=== PATIENT | female | born 1950 | race Caucasian/White ===

== ENCOUNTER 2019-03-11 06:10 | Day surgery (SDC) | payer MEDICARE ==
[~2019-03-11 06:10] MED LIST: Lactated Ringers 1,000 ML IV SCH; Lidocaine 1%/Sod Bicarbonate in NS 8.4% 1 ML Syringe IDERM PRN; Sodium Chloride 0.9% 10 ML Syringe FLUSH PRN
[2019-03-11] MEDS ORDERED: Propofol 200 MG/20 ML SDV ONE (06:54)
[2019-03-11] MEDS ORDERED: Midazolam 1 MG/ML 2 ML SDV ONE (06:55)
[2019-03-11] MEDS ORDERED: fentaNYL 100 MCG/2 ML SDV ONE (06:55)
[2019-03-11] MEDS ORDERED: Ondansetron 4 MG/2 ML SDV ONE (06:55)
[2019-03-11] MEDS ORDERED: Lidocaine 1% 4 ML ONE (06:55)
[2019-03-11] MEDS ORDERED: Bupivacaine 0.25% 10 ML SDV ONE ×2 (07:11→07:27)
[2019-03-11] MEDS ORDERED: Lidocaine 1% 30 ML SDV ONE (07:11)
--- NOTE | 2019-03-11 07:14 | PCM.PREANE ---
Preanesthetic Assessment - Anesthesia/Transfusion/Family Hx Anesthesia History: Prior Anesthesia Without Reaction Family History of Anesthesia Reaction: No Transfusion History: No Prior Transfusion(s) - Review of Systems General: No Symptoms Pulmonary: No Symptoms Cardiovascular: No Symptoms Gastrointestinal: No Symptoms Neurological: No Symptoms Other: Reports: None - Physical Assessment NPO Status Date: 03/10/19 NPO Status Time: 21:00 Vital Signs: Last Vital Signs Temp 36.2 C 03/11/19 06:15 Pulse 66 03/11/19 06:15 Resp 16 03/11/19 06:15 BP 152/87 H 03/11/19 06:15 Pulse Ox 96 03/11/19 06:15 Height: 1.57 m Weight: 79.379 kg ASA Class: 2 Mental Status: Alert & Oriented x3 Airway Class: Mallampati = 2 Dentition: Reports: Normal Dentition Thyro-Mental Finger Breadths: 3 Mouth Opening Finger Breadths: 2 ROM/Head Extension: Full Lungs: Clear to Auscultation, Normal Respiratory Effort Cardiovascular: Regular Rate, Regular Rhythm - Lab Values: Laboratory Last Values MRSA (PCR) Negative 03/05/19 13:55 - Allergies Allergies/Adverse Reactions: Allergies Allergy/AdvReac Type Severity Reaction Status Date / Time codeine Allergy Cannot Verified 03/10/19 12:54 Remember diclofenac [From Voltaren] Allergy Cannot Verified 03/10/19 12:54 Remember ezetimibe [From Zetia] Allergy Cannot Verified 03/10/19 12:54 Remember Iodinated Contrast Media Allergy Cannot Verified 03/10/19 12:54 Remember ketorolac [From Toradol] Allergy Cannot Verified 03/10/19 12:54 Remember morphine Allergy Cannot Verified 03/10/19 12:54 Remember prednisone Allergy Cannot Verified 03/10/19 12:54 Remember shellfish derived Allergy Cannot Verified 03/10/19 12:54 Remember Hjyddik-Alq-Rwr Reductase Allergy Cannot Verified 03/10/19 12:54 Inhibitor Remember - Acknowledgements Anesthesia Type Planned: MAC Pt an Appropriate Candidate for the Planned Anesthesia: Yes Alternatives and Risks of Anesthesia Discussed w Pt/Guardian: Yes Pt/Guardian Understands and Agrees with Anesthesia Plan: Yes PreAnesthesia Questionnaire HEENT History: Reports: Sinusitis Cardiovascular History: Reports: High Cholesterol, Hypertension (03-11-19 EKG SR 64 RBBB) Respiratory History: Reports: Asthma (inhaler this am) 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 (See Below) Other OB/BYN History: diffuse cystic mastopathy Musculoskeletal History: Reports: Other (See Below) Other Musculoskeletal History: tarsal tunnel syndrome, carpal tunnel syndrome, finger fracture Neurological History: Reports: Other (See Below) Other Neuro History: nerve stimulator to left leg Psychiatric History: Reports: Depression Endocrine/Metabolic History: Reports: None Hematologic History: Reports: None Immunologic History: Reports: None Oncologic (Cancer) History: Reports: None Dermatologic History: Reports: None - Past Surgical History Head Surgeries/Procedures: Reports: None HEENT Surgical History: Reports: Naso-Sinus Surgery Cardiovascular Surgical History: Reports: None Respiratory Surgical History: Reports: None GI Surgical History: Reports: Appendectomy Female Surgical History: Reports: Breast Biopsy, Tubal Ligation Endocrine Surgical History: Reports: None Neurological Surgical History: Reports: None Musculoskeletal Surgical History: Reports: Carpal Tunnel, Other (See Below) Other Musculoskeletal Surgeries/Procedures:: left ankle surgery x 7 Oncologic Surgical History: Reports: None Dermatological Surgical History: Reports: None - SUBSTANCE USE Smoking Status *Q: Former Smoker Recreational Drug Use History: No - HOME MEDS Home Medications: Home Meds Albuterol Sulfate [Albuterol Sulfate Hfa] 2 puff INH Q4H PRN 03/10/19 [History] EPINEPHrine [Epipen] 1 dose IM ONETIME PRN 03/10/19 [History] Fenofibrate Nanocrystallized [Fenofibrate] 145 mg PO DAILY 03/10/19 [History] Fluticasone/Salmeterol [Advair 100-50] 1 puff INH BID 03/10/19 [History] Ibuprofen [Advil] 200 mg PO BID 03/10/19 [History] Montelukast Sodium [Singulair] 10 mg PO DAILY 03/10/19 [History] Olopatadine [Patanol 0.1% Ophth Soln] 1 drop EYEBOTH BID 03/10/19 [History] Sertraline HCl 100 mg PO DAILY 03/10/19 [History] hydroCHLOROthiazide [Hydrochlorothiazide] 25 mg PO DAILY PRN 03/10/19 [History] metFORMIN [Glucophage XR] 500 mg PO DAILY 03/10/19 [History] - CURRENT (IN HOUSE) MEDS Current Meds: Current Medications Lactated Ringer's (Ringers, Lactated) 1,000 mls @ 125 mls/hr IV ASDIRECTED AREN Stop: 03/11/19 23:00 Last Admin: 03/11/19 06:25 Dose: 125 mls/hr Lidocaine/Sodium Bicarbonate (Buffered Lidocaine 1% In Ns 8.4%) 0.25 ml IDERM ONETIME PRN PRN Reason: Prior to IV Start Stop: 03/11/19 18:00 Last Admin: 03/11/19 06:25 Dose: 0.25 ml Sodium Chloride (Saline Flush) 10 ml FLUSH ASDIRECTED PRN PRN Reason: Keep Vein Open Stop: 03/11/19 18:00 Discontinued Medications Fentanyl (Sublimaze) Confirm Administered Dose 100 mcg .ROUTE .STK-MED ONE Stop: 03/11/19 06:56 Lidocaine HCl (Xylocaine-Mpf 1%) Confirm Administered Dose 4 mls @ as directed .ROUTE .STK-MED ONE Stop: 03/11/19 06:56 Midazolam HCl (Versed 1 Mg/Ml) Confirm Administered Dose 2 mg .ROUTE .STK-MED ONE Stop: 03/11/19 06:56 Ondansetron HCl (Zofran) Confirm Administered Dose 4 mg .ROUTE .STK-MED ONE Stop: 03/11/19 06:56 Propofol (Diprivan 20 Ml) Confirm Administered Dose 200 mg .ROUTE .STK-MED ONE Stop: 03/11/19 06:55
[2019-03-11] MEDS ORDERED: Triamcinolone Acetonide 40 MG/ML 1 ML MDV ONE (07:27)
[2019-03-11] MEDS ORDERED: ceFAZolin 1 GM Vial ONE (07:41)
--- NOTE | 2019-03-11 08:25 | PCM48HPAN ---
Post Anesthesia Note - EVALUATION WITHIN 48HRS OF ANESTHETIC Vital Signs in Normal Range: Yes Patient Participated in Evaluation: Yes Respiratory Function Stable: Yes Airway Patent: Yes Cardiovascular Function Stable: Yes Hydration Status Stable: Yes Pain Control Satisfactory: Yes Nausea and Vomiting Control Satisfactory: Yes Mental Status Recovered: Yes Vital Signs: Last Vital Signs Temp 36.2 C 03/11/19 06:15 Pulse 66 03/11/19 06:15 Resp 16 03/11/19 06:15 BP 152/87 H 03/11/19 06:15 Pulse Ox 96 03/11/19 06:15
--- NOTE | 2019-03-16 13:38 | PCM.OPNOTE ---
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
--- NOTE | 2019-03-16 14:28 | OR ---
DATE OF OPERATION: 03/11/2019 SURGEON: Tamir Cisneros MD OPERATION PERFORMED: Right ring finger mass excision with A1 anil release and left ring finger trigger finger steroid injection. PREOPERATIVE DIAGNOSIS: Bilateral ring finger stenosing tenosynovitis with mass of right ring finger. POSTOPERATIVE DIAGNOSIS: Bilateral ring finger stenosing tenosynovitis with mass of right ring finger. ANESTHESIA: Local MAC. ANESTHESIA PROVIDER: Marissa Delaney CRNA. SENIOR HR GENERALIST: Natasha Lester PA-C. ESTIMATED BLOOD LOSS: Less than 5 mL. COMPLICATIONS: None. CONDITION: Stable. DESCRIPTION OF PROCEDURE: The patient was identified in the preop holding area. Proper site was marked and identified by the surgeon. The patient was taken back to the operating theater where after adequate anesthesia, the patient's right upper extremity was sterilely prepped and draped in the usual sterile fashion. OR time-out was performed. The patient received 2 g of IV Ancef. At this time, the right upper extremity was exsanguinated and the Esmarch was used as a tourniquet on the forearm. 1% lidocaine without epinephrine and 0.25% Marcaine without epinephrine were used to anesthetize over the right ring finger A1 anil region as well as the mass that was palpable. A transverse incision was made. This was taken down to the subcutaneous tissue. 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 At this time, the A1 anil was visualized, and using a [place] blade, the A1 anil was resected both proximally and distally making sure to stop short of the A2 anil. The tendon was identified and showed no signs of adhesions. At this time, adequate saline was irrigated through the wound. 4-0 nylon sutures were used for closure of the skin incision. After this was completed, 0.5 mL 40 mg Kenalog 0.5 mL of 0.25% Marcaine were injected to the left ring finger A1 anil. The patient tolerated both procedures well also and was sent to the PACU in stable condition. MMODAL /[id number]
--- NOTE | 2019-03-22 08:38 | OR ---
DATE OF OPERATION: 03/11/2019 SURGEON: Tamir Cisneros MD ADDENDUM: Please note that the subcutaneous mass measured 1 cm x 8 mm with no margins and was sent to pathology for further examination. MMODAL /[id number]
== END 2019-03-11 09:12 | disposition home or self-care (01) ==
LOC: JD.SDS 06:10
PROVIDERS: ATTEND Orthopaedic Surgery
DX: M65.341 Trigger finger, right ring finger (principal); M65.342 Trigger finger, left ring finger; M79.89 Other specified soft tissue disorders; I10 Essential (primary) hypertension; E78.00 Pure hypercholesterolemia, unspecified; F33.9 Major depressive disorder, recurrent, unspecified; J45.20 Mild intermittent asthma, uncomplicated; Z88.6 Allergy status to analgesic agent; Z88.5 Allergy status to narcotic agent; Z88.8 Allergy status to other drugs, medicaments and biological substances; Z91.013 Allergy to seafood; Z91.041 Radiographic dye allergy status; Z87.891 Personal history of nicotine dependence; Z79.51 Long term (current) use of inhaled steroids; Z79.84 Long term (current) use of oral hypoglycemic drugs; Z79.899 Other long term (current) drug therapy
CPT/HCPCS: 20600; 26055; 26115; 87641; 88305; 93005; J0690; J2001; J2250; J2405; J2704; J3010; J3301; J3490; J7120; 01810

== ENCOUNTER 2025-03-23 06:00 | Day surgery (SDC) | payer MEDICARE, OTHER ==
[2025-03-23] MEDS ORDERED: Propofol 200 MG/20 ML SDV ONE (06:14)
[2025-03-23] MEDS ORDERED: fentaNYL 100 MCG/2 ML SDV ONE (06:15)
[2025-03-23] MEDS ORDERED: dexmedeTOMIDine HCl 200 MCG/2 ML SDV ONE (06:15)
[2025-03-23] MEDS: Lactated Ringers 1,000 ML IV SCH (06:30)
[2025-03-23] MEDS ORDERED: Sodium Chloride 0.9% 10 ML Syringe FLUSH PRN (06:54)
[2025-03-23] MEDS ORDERED: Sodium Chloride 0.9% 10 ML Syringe FLUSH SCH (09:00)
== END 2025-03-23 08:15 | disposition home or self-care (01) ==
LOC: JD.SDS 06:00
PROVIDERS: ATTEND Orthopaedic Surgery
DX: M67.442 Ganglion, left hand (principal); Z79.82 Long term (current) use of aspirin; Z79.84 Long term (current) use of oral hypoglycemic drugs; Z79.899 Other long term (current) drug therapy
CPT/HCPCS: 26160; J0665; J0690; J2003; J2704; J7120; 01830; 99100; J3010